=== PATIENT | male | born 1980 | race African-American/Black ===

== ENCOUNTER 2020-03-23 09:31 | Inpatient (IN) | payer BC ==
[~2020-03-23] VITALS: Ht 193 cm; Wt 110.7 kg
[2020-03-23 09:40] VITALS: BP 126/73
--- NOTE | 2020-03-23 10:33 | EKG ---
[address] [place] [address] ELECTROCARDIOGRAM REPORT Name: ANIYA ARAUJO Room #: [facility] M.R.#: [id number] Admission: Attend Phys: Discharge: Date of : 82 Report #: [id number] [facility] ED Test Date: 2020-03-23 Test Time: 09:36:39 Pat Name: ANIYA ARAUJO Department: Room: Gender: Cake Former: PAULY : 1980 Requested By: Cherry Harley Order Number: [id number] MD: Damon Zavala Measurements Intervals [place] Rate: 82 P: 37 [place]: 133 QRS: 45 QRSD: 98 T: -17 QT: 367 QTc: 429 Interpretive Statements Sinus rhythm Probable left ventricular hypertrophy Borderline T abnormalities, inferior leads Borderline ST elevation, lateral leads No previous ECG available for comparison Electronically Signed On 03-23-2020 10:33:36 RESIDENTIAL COUNSELOR by Damon Zavala [email or web address] <ELECTRONICALLY SIGNED> By: Damon Zavala MD, [facility] 03/23/20 1033 0936 0936 Damon Zavala MD, FACC /EPI
[2020-03-23 10:44] LABS: ABSOLUTE NEUTROPHILS 4.7 thou/uL (1.4-8.2); BASOPHILS 0.7 % (0.0-2.0); EOSINOPHILS 2.4 % (0.0-3.0); HEMATOCRIT 43.6 % (42.0-52.0); HEMOGLOBIN 14.3 gm/dL (14.0-18.0); LYMPHOCYTES 26.9 % (24.0-44.0); MCH 28.2 pg (26.0-34.0); MCHC 32.8 g/dL (28.0-37.0); MCV 85.8 fL (80.0-100.0); MONOCYTES 9.2 % (1.0-8.0); PLATELET COUNT 179 thou/uL (150-400); POLYS 60.8 % (36.0-66.0); RBC 5.08 mil/uL (4.50-6.00); RDW 13.6 % (10.5-14.5); WBC 7.8 thou/uL (4.0-11.0)
[2020-03-23 10:45] LABS: ANION GAP 8 mmol/L (7-16); BUN 12 mg/dL (7-18); CHLORIDE 102 mmol/L (98-107); CO2 26 mmol/L (21-32); CREATININE 1.2 mg/dL (0.7-1.3); GLUCOSE 115 mg/dL (74-106); POTASSIUM 4.4 mmol/L (3.5-5.1); SODIUM 136 mmol/L (136-145)
[2020-03-23 10:55] LABS: ALBUMIN 4.1 g/dL (3.4-5.0); DIRECT BILIRUBIN < 0.1 mg/dL (<0.1-0.2); SGOT 35 U/L (15-37); SGPT 31 U/L (16-63); TOTAL BILIRUBIN 0.5 mg/dL (0.2-1.0); TOTAL PROTEIN 7.8 g/dL (6.4-8.2)
[2020-03-23 13:16] LABS: LARGE PLATELETS OCCASIONAL
[2020-03-23 16:22] LABS: CHOLESTEROL 255 mg/dL (<200); HDL CHOLESTEROL 41 mg/dL (>40); LDL CHOLESTEROL 193 mg/dL (<100); TC:HDL 6.2 Ratio (Not establshd); TRIGLYCERIDE 109 mg/dL (<150); VLDL 22 mg/dL (<40)
--- NOTE | 2020-03-23 16:46 | EKG ---
[address] [employer] [place] [address] ELECTROCARDIOGRAM REPORT Name: ANIYA ARAUJO Room #: 170-9 ADM IN M.R.#: [id number] Admission: 03/23/20 Attend Phys: Avtar Rand MD Discharge: Date of : 82 Report #: [id number] [facility] ED Test Date: 2020-03-23 Test Time: 11:49:41 Pat Name: ANIYA ARAUJO Department: Room: 170 Gender: M Manager Technical Services: COURTNEY : 1980 Requested By: Cherry Harley Order Number: [id number] MD: Carlos Lewis Measurements Intervals [place] Rate: 75 P: 40 [place]: 143 QRS: 48 QRSD: 94 T: -8 QT: 365 QTc: 408 Interpretive Statements Sinus rhythm Borderline repolarization abnormality Non specific ST-T changes Baseline wander in lead(s) V2 Compared to ECG 03/23/2020 09:36:39 T-wave abnormality no longer present ST (T wave) deviation still present Electronically Signed On 03-23-2020 16:46:37 DIRECTOR OF GRADUATE MEDICAL EDUCATION by Carlos Lewis [email or web address] <ELECTRONICALLY SIGNED> By: Carlos Lewis MD, FAC 03/23/20 1646 1149 1149 Carlos Lewis MD, [facility] /EPI
[2020-03-24] VITALS (15 sets, daily range): BP systolic 97–138; BP diastolic 40–86
--- NOTE | 2020-03-24 07:58 | NUR ---
RECEIVED REPORT FROM [facility] ED RN.PATIENT ARRIVED TO ROOM 206 AROUND 0200 AM.PATIENT A/O X 4.UP INDEPENDENTLY.CHEST PAIN IS BETTER COMPARED TO THE ONE HE EXPERIENCED IN ED.NPO SINCE MIDNIGHT FOR PROCEDURE TODAY.MONITOR SHOWS SR.POC CONTINUED.
--- NOTE | 2020-03-24 11:26 | CATHLAB ---
[facility] [place] [address] [place] [address] INVASIVE PROCEDURE REPORT Name: ANIYA ARAUJO Room #: 206-P ADM IN M.R.#: [id number] Admission: 03/23/20 Attend Phys: Avtar Rand MD Discharge: Date of : 82 Report #: [id number] THIS REPORT FOR: cc: Abimael Day MD, Christopher B. MD Lundgren, Craig H. MD [facility] ~ APPROVED REPORT Study performed: 03/24/2020 07:28:27 Patient Details Patient Status: In-Patient Room #: 206 The patient is a 39 year-old male Event Personnel Damon Zavala Research Scholar, Juanis Joshi RTR, STOKER ERECTOR Monitor, Krystina Bolanos Dubreuil, Ashley RN terrazzo laborer Performed Art Access - R femoral artery* Left Heart Cath w/or w/o Coronaries [id number] [facility] Hemostasis with Manual pressure 15111 Initial Mod Sed Same Phys/QHP Gr5y [id number] 80009 Mod Sed Same Phys/QHP Ea 308243 Indication Chest pain Procedure Narrative The patient was brought electively to the Cardiac Catheterization Laboratory and was prepped and draped in a sterile manner. The Right Groin^ was infiltrated with 1% Lidocaine subcutaneous anesthesia. A PINNACLE 6FR Sheath #[id number] sheath was inserted into the RFA 6F^. Coronary angiography was performed using coronary diagnostic catheters. The right coronary system was accessed and visualized with a JR4 catheter. The left coronary system was accessed and visualized with a JL4 catheter. The left ventricle was accessed and visualized with a ANGLED PIGTAIL catheter. Left ventricular/Aortic Valve gradient assessed via catheter pullback. Left ventriculogram was performed in 30 degree projection. Closure device was deployed with a 6 Fr MYNXGRIP 6/7F #[id number]. Hemostasis was obtained with manual pressure following sheath removal without any complications. The patient tolerated the procedure well and there were no complications associated with the procedure. There was no hematoma. [facility] [address] [place] [address] INVASIVE PROCEDURE REPORT Name: ANIYA ARAUJO Room #: 206-P [facility] IN ..#: [id number] Admission: 03/23/20 Attend Phys: Avtar Rand Discharge: Date of : 82 Report #: [id number] manual pressure was held for 20 minutes. Intraoperative Conscious Sedation Sedation start time: 07:55 Case end Time: 09:39 Fentanyl 125 mcg Versed 3 mg Fluoro Time: 41.39 minutes Dose: DAP 22060.90 cGycm2 4547 mGy Contrast Type and Amount: Omnipaque 420 ml Coronary Angiography The patient's coronary anatomy is co- dominant. Diagnostic Cath Left Main Normal left main LAD Mild ectasia and plaquing of the proximal LAD. Circumflex Codominant circumflex. 60% mid circumflex just after the first marginal branch OM1 Large OM1, angiographically normal OM2 Distally arising second marginal branch, normal Right Coronary Occluded right coronary with avgj-mf-waxqd collateralization. Ramus Moderate size ramus branch with minimal proximal plaquing Left Ventriculography The left ventricle is normal in size with normal contractility. The left ventricular ejection fraction is estimated to be 60-65%. Left ventricular wall motion abnormalities are not present. There is no mitral insufficiency. Hemodynamics The aortic pressure is 129/54 mmHg with a mean of 88 mmHg. The left ventricular pressure is 135/2 mmHg with a mean of mmHg. The left ventricular end diastolic pressure is 37 mmHg. PCI Technique Lesion Anticoagulation was achieved with Heparin, Integrilin. Percutaneous coronary intervention was performed on the distal right coronary artery. The lesion stenosis prior to intervention was 100% with SOBIA 0 flow. A LAUNCHER 6FR 3DRC #[id number] Guide Catheter was used to engage the RCA ostium. BALLOON DILATION [facility] [address] [place] [address] INVASIVE PROCEDURE REPORT Name: ARAUJOANIYA Room #: [facility] IN M.R.#: [id number] Admission: 03/23/20 Attend Phys: Avtar Rand Discharge: Date of : 82 Report #: [id number] Multiple attempts were made with various wires to traverse the distal right coronary occlusion without success. Dr. Wood assisted in procedure, also unable to wire vessel, probably not a recent occlusion based on angiographic properties and extensive collateralization. Medical therapy was recommended Conclusion 1. Normal global and regional left ventricular systolic function. 2. Normal left main 3. Mild proximal LAD plaquing and ectasia. 4. 60% mid circumflex stenosis just after a large first marginal branch 5. Distal right coronary occlusion with extensive leoq-wt-epytc collateralization. <ELECTRONICALLY SIGNED> By: Damon Zavala MD, [facility] 03/24/20 1125 24 Damon Zavala MD, FACC /INF
[2020-03-24] MEDS ORDERED: LIPITOR40 MG PO ×2 (12:14→17:44)
[2020-03-24] MEDS ORDERED: ASA81BEC PO ×2 (12:14→17:44)
[2020-03-24] MEDS ORDERED: METOPROLOL TART25 MG PO ×2 (12:14→17:44)
--- NOTE | 2020-03-24 15:22 | 2DMMODE ---
[facility] [place] [address] [place] [address] 2 D/M-MODE ECHOCARDIOGRAM Name: ANIYA ARAUJO Room #: 206-P ADM IN M.R.#: [id number] Admission: 03/23/20 Attend Phys: Avtar Rand MD Discharge: Date of : 82 Report #: [id number] THIS REPORT FOR: cc: Abimael Day MD, Christopher B. MD Santiago, Patrick MD [facility] ~ APPROVED REPORT Study performed: 03/24/2020 13:30:20 EXAM: Comprehensive 2D, Doppler, and color-flow Echocardiogram Patient Location: Bedside Room #: 206 Status: routine BSA: 2.34 HR: 70 bpm BP: 103/57 mmHg Rhythm: NSR Other Information Study Quality: Good Indications CAD Chest Pain 2D Dimensions IVSd: 14.18 (7-11mm) LVOT Diam: 24.31 (18-24mm) LVDd: 47.18 mm PWd: 15.81 (7-11mm) Ascending Ao: 32.85 (22-36mm) LVDs: 32.08 (25-40mm) Aortic Root: 35.28 mm IVC: 15.00 mm Volumes Left Atrial Volume (Systole) Single Plane 4CH: 35.27 mL Single Plane 2CH: 30.26 mL LA ESV Index: 17.00 mL/m2 Aortic Valve AoV Peak Fausto.: 1.15 m/s AO Peak Gr.: 5.25 mmHg LVOT Max P.45 mmHg LVOT Max V: 0.93 m/s GALE Vmax: 3.76 cm2 [facility] [address] [place] [address] 2 D/M-MODE ECHOCARDIOGRAM Name: ANIYA ARAUJO Room #: 206-P [facility] IN [facility]#: [id number] Admission: 03/23/20 Attend Phys: Avtar Rand Discharge: Date of : 82 Report #: [id number] Mitral Valve E/A Ratio: 1.1 MV Decel. Time: 210.99 ms MV E Max Fausto.: 0.65 m/s MV A Fausto.: 0.57 m/s MV PHT: 61.19 ms IVRT: 106.11 ms Pulmonary Valve PV Peak Fausto.: 0.90 m/s PV Peak Gr.: 3.27 mmHg Pulmonary Vein P Vein S: 0.48 m/s P Vein A: 0.21 m/s P Vein D: 0.35 m/s P Vein A Dur.: 110.7 msec P Vein S/D Ratio: 1.37 Tricuspid Valve TR Peak Fausto.: 2.46 m/s TR Peak Gr.: 24.16 mmHg PA Pressure: 29.00 mmHg Left Ventricle The left ventricle is normal size. There is normal LV segmental wall motion. Mild concentric left ventricular hypertrophy. The left ventricular systolic function is normal. The left ventricular ejection fraction is within the normal range. LVEF is 55-60%. The left ventricular diastolic function is normal. Right Ventricle The right ventricle is normal size. The right ventricular systolic function is normal. Atria The left atrium size is normal. The right atrium size is normal. Aortic Valve The aortic valve is normal in structure. No aortic regurgitation is present. There is no aortic valvular stenosis. Mitral Valve The mitral valve is normal in structure. Mild mitral regurgitation. No evidence of mitral valve stenosis. Tricuspid Valve The tricuspid valve is normal in structure. There is trace to mild [facility] [address] [place] [address] 2 D/M-MODE ECHOCARDIOGRAM Name: ANIYA ARAUJO Room #: 206-P ADM IN M.R.#: [id number] Admission: 03/23/20 Attend Phys: Avtar Rand Discharge: Date of : 82 Report #: [id number] tricuspid regurgitation. Estimated PAP 29 mmHg. There is no pulmonary hypertension. Pulmonic Valve The pulmonary valve is normal in structure. There is no pulmonic valvular regurgitation. Great Vessels The aortic root is normal in size. IVC is normal in size and collapses >50% with inspiration. Pericardium There is no pericardial effusion. <Conclusion> Normal left ventricular size/wall thickness Ejection fraction 60% Very mild inferobasilar hypokinesis Normal right ventricular size/function Normal atrial size Color-flow Doppler study was performed of the aortic/mitral/tricuspid/pulmonary valve Mild mitral valve insufficiency Mild tricuspid valve insufficiency Pulmonary systolic pressure estimated 29 mmHg No pericardial effusion <ELECTRONICALLY SIGNED> By: Carlos Lewis MD, FACC 03/24/201521 21 21 Carlos Lewis MD, FACC /INF
--- NOTE | 2020-03-24 17:50 | NUR ---
ASSUMED CARE AT CHANGE OF SHIFT. CARDIAC CATH WITH NO INTERVENTION. POST CARDIAC VSS PER PROTOCOL. CARDIAC TILE CLASSIFIER ROUND WITH EDUCATION POST PROCEDURE. PT DC HOME WITH SELF CARE. REVIEWED DC PAPER WORK, POST CATH SIGHT CARE, AND REVIEWED NEW MEDICATION. IV AND TELE REMOVED.
[2020-03-25 00:06] LABS: GLYCOHEMOGLOBIN (HGB A1C) 5.5 % (4.8-5.6)
== END 2020-03-24 18:30 | disposition home or self-care (01) | DRG 251 ==
LOC: ER 09:31 → 2N 13:54 → EROBS 13:54 → 2N 03-24 02:00
PROVIDERS: Emergency Medicine; ADMIT Internal Medicine; ATTEND Internal Medicine
PROC: 4A023N7 Measurement of Cardiac Sampling and Pressure, Left Heart, Percutaneous Approach (ICD-10-PCS; principal; 2020-03-24)
PROC: B2151ZZ Fluoroscopy of Left Heart using Low Osmolar Contrast (ICD-10-PCS; principal; 2020-03-24)
PROC: B2111ZZ Fluoroscopy of Multiple Coronary Arteries using Low Osmolar Contrast (ICD-10-PCS; principal; 2020-03-24)
PROC: 02703ZZ Dilation of Coronary Artery, One Artery, Percutaneous Approach (ICD-10-PCS; principal; 2020-03-24)
DX: I21.4 Non-ST elevation (NSTEMI) myocardial infarction (principal); Z20.822 Contact with and (suspected) exposure to COVID-19; F17.210 Nicotine dependence, cigarettes, uncomplicated; I10 Essential (primary) hypertension; E78.5 Hyperlipidemia, unspecified; E78.00 Pure hypercholesterolemia, unspecified; I25.10 Atherosclerotic heart disease of native coronary artery without angina pectoris; Z82.41 Family history of sudden cardiac death; Z82.49 Family history of ischemic heart disease and other diseases of the circulatory system